=== PATIENT | female | born 1995 | race Caucasian/White ===

== ENCOUNTER → 2016-08-18 | Day surgery (SDC) | payer OTHER ==
[~2016-08-18] MED LIST: BENTYL10 MG PO; PRILOSEC OTC20 MG PO
== END | disposition home or self-care (01) ==
LOC: OR 07:16
DX: K59.00 Constipation, unspecified (principal); K92.1 Melena; R10.84 Generalized abdominal pain; E66.9 Obesity, unspecified; J45.909 Unspecified asthma, uncomplicated; Z33.1 Pregnant state, incidental; Z88.0 Allergy status to penicillin; Z98.818 Other dental procedure status; Z79.899 Other long term (current) drug therapy; Z53.09 Procedure and treatment not carried out because of other contraindication
CPT/HCPCS: 84703; J7030